=== PATIENT | female | born 1965 | race Caucasian/White ===

== ENCOUNTER → 2016-06-29 | Outpatient (CLI) | payer OTHER ==
[~2016-06-29] MED LIST: ALIGN4 MG PO; BENTYL10 MG; MOTRIN800 MG PO; PRILOSEC40 MG PO; ZIAC 2.5/6.251 TAB PO
== END | disposition home or self-care (01) ==
LOC: CDC 12:37
DX: Z01.810 Encounter for preprocedural cardiovascular examination (principal); M19.012 Primary osteoarthritis, left shoulder; M75.42 Impingement syndrome of left shoulder; M75.112 Incomplete rotator cuff tear or rupture of left shoulder, not specified as traumatic; M25.512 Pain in left shoulder
CPT/HCPCS: 93000